=== PATIENT | female | born 1970 | race Caucasian/White ===

== ENCOUNTER 2020-09-13 10:48 | Day surgery (SDC) | payer OTHER | END 2020-09-13 15:06 | disposition home or self-care (01) | LOC: FAS 10:48 → EDSTATUS 22:54 | DX: T18.108A Unspecified foreign body in esophagus causing other injury, initial encounter (principal); K22.4 Dyskinesia of esophagus; K20.90 Esophagitis, unspecified without bleeding | CPT/HCPCS: 99284; J2704; J7120 ==